=== PATIENT | female | born 1985 | race Caucasian/White ===

== ENCOUNTER 2023-09-17 08:44 | Outpatient (CLI) | payer BC ==
[2023-09-17 09:33] LABS: #Basophils 0.03 10x3/uL (0.0-0.2); #Eosinphils 0.36 10x3/uL (0.0-0.5); #Monocytes 0.49 10x3/uL (0.0-1.1); #Neutrophils 4.51 10x3/uL (1.5-8.4); %Basophils 0.4 % (0.0-2.0); %Eosinophils 4.9 % (0.0-6.0); %Lymphocytes 27.1 % (18.0-47.0); %Monocytes 6.6 % (0.0-10.0); %Neutrophils 60.7 % (40.0-75.0); Hematocrit 43.3 % (34.9-44.5); Hemoglobin 15.1 g/dL (12.0-15.5); Mean Corpuscular HGB CONC 34.9 g/dL (32.0-36.0); Mean Corpuscular Hemoglobin 31.3 pg (27.0-33.0); Mean Corpuscular Volume 89.6 fl (81.6-98.3); Mean Platelet Volume 10.8 fl (7.4-10.4); Platelet Count 203 10x3/uL (150-450); RBC Distribution Width 12.8 % (11.5-14.5); Red Blood Cell (RBC) Count 4.83 10x6/uL (3.90-5.03); White Blood Cell (WBC) Count 7.4 10x3/uL (3.5-10.5)
[2023-09-17 10:03] LABS: BHCG - Serum Negative (NEGATIVE); Pregs Control Background? CLEAR/WHITE (CLR/WHITE); Pregs Control Bar Appear? YES (CONTROL BAR)
[2023-09-17 10:15] LABS: ALT (SGPT) 19 U/L (8-55); AST (SGOT) 16 U/L (5-34); Albumin 3.9 g/dL (3.5-5.0); Alkaline Phosphatase 75 U/L (40-110); Anion Gap 14 mmol/L (10-20); BUN (Urea Nitrogen) 10 mg/dL (7.0-18.7); Bilirubin, Total 0.7 mg/dL (0.2-1.2); Calc. Creatinine Clearance 0 mL/min (70-130); Calcium 9.6 mg/dL (7.8-10.44); Carbon Dioxide 20 mmol/L (22-29); Chloride 109 mmol/L (98-107); Estimated GFR 98; Globulin 2.6 g/dL (2.4-3.5); Glucose 137 mg/dL (70-105); Potassium 4.1 mmol/L (3.5-5.1); Protein, Total 6.5 g/dL (6.0-8.3); Sodium 139 mmol/L (136-145)
== END 2023-09-17 08:45 | disposition home or self-care (01) ==
LOC: LABBT 08:44
PROVIDERS: ATTEND Specialist
DX: Z01.818 Encounter for other preprocedural examination (principal); K80.20 Calculus of gallbladder without cholecystitis without obstruction
CPT/HCPCS: 80053; 84703; 85025; 93005; 93010